=== PATIENT | male | born 1935 | race Caucasian/White ===

== ENCOUNTER 2017-01-20 19:41 | Inpatient (IN) ==
[2017-01-20 21:36] LABS: Basophils % 0.3 %; Eosinophils # 0.2 K/mcL (0.0-0.6); Hematocrit 44.8 % (37.5-50.1); Hemoglobin 14.3 g/dL (12.9-16.9); Immature Granulocytes % 0.7 % (0-4); Lymphocytes # 2.7 K/mcL (0.6-4.6); Lymphocytes % 23.1 %; Mean Corpuscular HGB Conc 31.9 g/dL (31.6-35.5); Mean Corpuscular Hemoglobin 27.4 pg (28.0-33.3); Mean Platelet Volume 9.6 fL (9.4-12.4); Monocytes # 0.7 K/mcL (0.0-1.3); Monocytes % 5.7 %; Neutrophils # 8.1 K/mcL (1.6-8.9); Platelet Count 204 K/mcL (140-400); Red Blood Count 5.21 M/mcL (4.19-5.50); Red Cell Distribution Width 12.5 % (11.5-14.5); Segmented Neutrophils % 68.2 %
[2017-01-20 21:42] LABS: INR 1.1; Prothrombin Time 11.6 Seconds (9.4-12.1)
[2017-01-20 21:44] LABS: Activated Partial Thrombo Time 30.9 Seconds (26.0-36.0)
[2017-01-20 21:50] LABS: BUN/Creatinine Ratio 16 (6-26); Blood Urea Nitrogen 15 mg/dL (8-26); Calcium 9.1 mg/dL (8.6-10.8); Carbon Dioxide 25 mEq/L (19-29); Chloride 102 mEq/L (98-109); Glucose 151 mg/dL (70-99); Osmolality,Calculated 284 (280-300); Potassium 4.5 mEq/L (3.5-4.5); Sodium 135 mEq/L (136-145); eGFR For African Americans > 60 (> 60); eGFR For Non-African Americans > 60 (> 60)
[2017-01-21] MEDS ORDERED: *HR* Enoxaparin 80 MG/0.8 ML SYRINGE SQ STA (00:14)
--- NOTE | 2017-01-21 00:37 | Emergency Department Note ---
Disposition Clinical Impression: Pulmonary embolism Qualifiers: Pulmonary embolism type: other Chronicity: acute Acute cor pulmonale presence: with acute cor pulmonale Qualified Code(s): I26.09 - Other pulmonary embolism with acute cor pulmonale Disposition: Home, Self-Care Condition: Good Referrals: Pao Kwon MD [Primary Care Provider] - Forms: ED Satisfaction Letter General Adult HPI - General Chief complaint: ED Shortness of Breath/Dyspnea Stated complaint: PE in Lungs / per [facility] CT scan Time Seen by Provider: 01/20/17 20:31 Source: patient Limitations: no limitations Nursing Notes Reviewed: Yes Vital Signs Reviewed: Yes - History of Present Illness HPI Narrative: This is a 81-year-old male with a history of bladder cancer presents with concern for pulmonary embolism. He was seen the day at [facility] and had a screening CAT scan which incidentally found pulmonary embolism. He has no dyspnea or chest pain. He was sent here for further evaluation. He denies calf pain, leg tenderness, recent travel. Pain Scale: 0 - Related Data Home Medications Medication Instructions Recorded Confirmed Docusate [Colace] 100 mg PO DAILY PRN 11/15/16 11/15/16 Simvastatin [Zocor] 20 mg PO HS 11/15/16 11/15/16 Previous Rx's Medication Instructions Recorded HYDROcodone/Acet 5/325 mg [[place] 1 tab PO Q4H PRN #15 tab 11/15/16 5-325 mg] Phenazopyridine HCl [Pyridium] 200 mg PO TIDAC PRN #20 tab 11/15/16 Sulfamethoxazole/Trimeth DS 1 each PO BID #6 tablet 11/15/16 [Bactrim DS] Allergies Allergy/AdvReac Type Severity Reaction Status Date / Time No Known Allergies Allergy Verified 11/15/16 13:50 All systems ED: reviewed and negative except as stated. Past Medical History - Past Medical History Medical history: Reports: cancer, hyperlipidemia, other Surgical history: Reports: cataract, vasectomy Psychiatric history: Reports: no psych history - Social History Smoking Status: Never smoker Smokeless Tobacco Status: No Alcohol use: Reports: none Drug use: Reports: none Physical Exam - General Limitations: no limitations General appearance: alert, in no apparent distress - Head Head exam: atraumatic - Eye Eye exam: Present: normal appearance - ENT ENT exam: normal exam - Neck Neck exam: Present: normal inspection - Chest Chest inspection: Present: normal inspection - Respiratory Respiratory exam: Present: normal lung sounds bilaterally - Cardiovascular Cardiovascular exam: Present: regular rate, normal rhythm - Abdominal Exam Abdominal exam: Present: soft, Non-Tender - Extremities Exam Extremities exam: Present: pedal edema - Expanded Lower Extremity Exam Gait: observed and normal - Back Exam Back exam: Present: normal inspection - Neurological Exam Neurological exam: Present: alert, oriented X3, CN II-XII intact - Psychiatric Psychiatric exam: Present: normal affect, normal mood - Skin Skin exam: Present: warm, dry Course Vital Signs Temperature 98.1 F 01/20/17 19:45 Pulse Rate 64 01/20/17 19:45 Respiratory Rate 20 01/20/17 19:45 Blood Pressure 152/86 01/20/17 19:45 O2 Sat by Pulse Oximetry 96 01/20/17 19:45 Temperature 98.1 F 01/20/17 19:45 Pulse Rate 64 01/20/17 19:45 Respiratory Rate 20 01/20/17 19:45 Blood Pressure 152/86 01/20/17 19:45 O2 Sat by Pulse Oximetry 96 01/20/17 19:45 Oxygen Delivery Oxygen Delivery Room Air Medical Decision Making - MDM Narrative Medical decision making narrative: Patient presents with history of recent bladder cancer. Found to have palmar embolism without heart strain. Also has acute DVT of the left lower extremity. EKG shows sinus rhythm with right bundle branch block, left anterior fascicular block. Nonspecific ST segment changes nonspecific abnormal ECG. Patient was on abnormal creatinine, anticoagulation was started with Lovenox. Patient will be admitted to the hospitalist team for evaluation of DVT and pulmonary M was not. - Medical Records Medical records reviewed: Yes I reviewed the patient's medical records. - Lab Data Lab results reviewed: Yes I reviewed the patient's lab results. Result diagrams: 01/20/17 21:26 01/20/17 21:26 Lab Results 01/20/17 01/20/17 01/20/17 Range/Units 21:26 21:26 21:26 WBC 11.8 H (4.3-11.1) K/mcL RBC 5.21 (4.19-5.50) M/mcL Hgb 14.3 (12.9-16.9) g/dL Hct 44.8 (37.5-50.1) % MCV 86.0 (83.0-100.0) fL MCH 27.4 L (28.0-33.3) pg MCHC 31.9 (31.6-35.5) g/dL RDW 12.5 (11.5-14.5) % Plt Count 204 (140-400) K/mcL MPV 9.6 (9.4-12.4) fL Immature Gran % 0.7 (0-4) % Seg Neutrophils % 68.2 % Lymphocytes % 23.1 % Monocytes % 5.7 % Eosinophils % 2.0 % Basophils % 0.3 % Neutrophils # 8.1 (1.6-8.9) K/mcL Lymphocytes # 2.7 (0.6-4.6) K/mcL Monocytes # 0.7 (0.0-1.3) K/mcL Eosinophils # 0.2 (0.0-0.6) K/mcL Basophils # 0.0 (0.0-0.2) K/mcL PT 11.6 (9.4-12.1) Seconds INR 1.1 APTT 30.9 (26.0-36.0) Seconds D-Dimer 5005 H (0-500) ng/mLFEU Sodium 135 L (136-145) mEq/L Potassium 4.5 (3.5-4.5) mEq/L Chloride 102 (98-109) mEq/L Carbon Dioxide 25 (19-29) mEq/L BUN 15 (8-26) mg/dL Creatinine 0.91 (0.72-1.25) mg/dL Est GFR ( Amer) > 60 (> 60) Est GFR (Non-Af Amer) > 60 (> 60) BUN/Creatinine Ratio 16 (6-26) Glucose 151 H (70-99) mg/dL Calculated Osmolality 284 (280-300) Lactic Acid (0.5-2.2) mmol/L Calcium 9.1 (8.6-10.8) mg/dL B-Natriuretic Peptide (0-100) pg/mL 01/20/17 01/20/17 Range/Units 21:26 21:26 WBC (4.3-11.1) K/mcL RBC (4.19-5.50) M/mcL Hgb (12.9-16.9) g/dL Hct (37.5-50.1) % MCV (83.0-100.0) fL MCH (28.0-33.3) pg MCHC (31.6-35.5) g/dL RDW (11.5-14.5) % Plt Count (140-400) K/mcL MPV (9.4-12.4) fL Immature Gran % (0-4) % Seg Neutrophils % % Lymphocytes % % Monocytes % % Eosinophils % % Basophils % % Neutrophils # (1.6-8.9) K/mcL Lymphocytes # (0.6-4.6) K/mcL Monocytes # (0.0-1.3) K/mcL Eosinophils # (0.0-0.6) K/mcL Basophils # (0.0-0.2) K/mcL PT (9.4-12.1) Seconds INR APTT (26.0-36.0) Seconds D-Dimer (0-500) ng/mLFEU Sodium (136-145) mEq/L Potassium (3.5-4.5) mEq/L Chloride (98-109) mEq/L Carbon Dioxide (19-29) mEq/L BUN (8-26) mg/dL Creatinine (0.72-1.25) mg/dL Est GFR ( Amer) (> 60) Est GFR (Non-Af Amer) (> 60) BUN/Creatinine Ratio (6-26) Glucose (70-99) mg/dL Calculated Osmolality (280-300) Lactic Acid 1.1 (0.5-2.2) mmol/L Calcium (8.6-10.8) mg/dL B-Natriuretic Peptide 85 (0-100) pg/mL - Radiology Data Radiology results reviewed: Yes I reviewed the patient's radiology results.
[2017-01-21] MEDS ORDERED: Naloxone 0.4 MG/ML INJ IVP PRN (00:40)
[2017-01-21] MEDS ORDERED: Ondansetron 4 MG/2 ML VIAL IVP PRN (00:40)
[2017-01-21] MEDS ORDERED: Acetaminophen 325 MG TABLET PO PRN (00:40)
--- NOTE | 2017-01-21 00:54 | Internal Med History&Physical ---
Date of Encounter: 01/21/17 Time of Encounter: 00:30 Assessment and Plan (1) Pulmonary embolism Current visit: Yes Status: Acute Acute Right side PE with Left lower leg DVT - asymptomatic - likely caused due to cancer Lovenox 1mg/kg SC BID, Coumadin 5mg (patient wants to be on Coumadin) Cardiac telemonitor, pulse ox monitor PT/INR Qualifiers: Pulmonary embolism type: other Chronicity: acute Acute cor pulmonale presence: without acute cor pulmonale Qualified Code(s): I26.99 - Other pulmonary embolism without acute cor pulmonale (2) DVT, lower extremity, distal, acute Current visit: Yes Status: Acute acute left lower leg DVT continue Lovenox SC (3) Bladder tumor Current visit: No Status: Chronic s/p tumor resection Follows up at [facility] Scheduled for chemotherapy soon (4) Hyperlipidemia Current visit: Yes Status: Chronic Continue Statin Qualifiers: Hyperlipidemia type: unspecified Qualified Code(s): E78.5 - Hyperlipidemia , unspecified Internal Medicine - H&P: HPI Chief complaint: Pulmonary embolus Admitted From: Emergency Dept History of present illness: Mr. Huerta is a 81 year old male with past medical history of bladder cancer status post tumor resection and soon to undergo chemotherapy. He presents to the ED after being diagnosed with a pulmonary embolus, which was found incidentally on a CT scan of chest at [facility]. Patient underwent CT scan of the abdomen and chest to look for metastasis. Patient was advised to to the ED in view of PE. On examination patient is awake and alert. Not in any distress. Patient denies chest pain, denies shortness of breath denies palpitations denies dizziness or lightheadedness. Denies abdominal pain or nausea or vomiting. He has no acute complaints at present. Patient's son is at bedside and he also states patient has not complained of anything and that they were surprised when they were told to go to the ED. Patient denies calf pain or tenderness. Patient states he is very active and does not have any other significant medical problems. CT angiogram of the chest done here revealed acute pulmonary emboli of the right lower lobe and also middle lobe with overall mild clot burden. Patient was also found to have left lower leg DVT. He has been given Lovenox 1 mg/kg subcutaneous in the ED. Patient states he wants to be on warfarin for long-term anticoagulation, because his is on it as well. He does not want to be on any of the newer anticoagulant medications. Patient is being admitted for acute DVT and acute PE. Patient and his son have been explained about his condition and plan of care in detail. They understood and agreed. No unanswered questions. CODE STATUS full code. Past Med Surg Social Fam HX - Past Medical History Medical history: cancer, hyperlipidemia, other Psychiatric history: no psych history - Past Surgical History Surgical History: cataract, vasectomy, other (bladder tumor resection) - Social History Smoking Status: Never smoker Smokeless Tobacco Status: No Alcohol use: none Drug use: none Internal Medicine - H&P: Meds Docusate [Colace] 100 mg PO DAILY PRN 11/15/16 [History] HYDROcodone/Acet 5/325 mg [[place] 5-325 mg] 1 tab PO Q4H PRN #15 tab 11/15/16 [Rx ] Phenazopyridine HCl [Pyridium] 200 mg PO TIDAC PRN #20 tab 11/15/16 [Rx] Simvastatin [Zocor] 20 mg PO HS 11/15/16 [History] Sulfamethoxazole/Trimeth DS [Bactrim DS] 1 each PO BID #6 tablet 11/15/16 [Rx] Allergies No Known Allergies Allergy (Verified 11/15/16 13:50) All Systems PM: A 10-system review of systems was performed and is negative for pertinent findings except as documented above in the HPI. - Constitutional Constitutional: as per HPI, no fatigue, no weakness - EENT Eyes: no blurry vision, no loss of vision - Cardiovascular Cardiovascular ROS IM: no chest pain, no diaphoresis, no dyspnea, no dyspnea on exertion, no lightheadedness, no orthopnea - Respiratory Respiratory: no cough, no dyspnea, no hemoptysis, no dyspnea on exertion, no wheezing, no chest congestion - Gastrointestinal Gastrointestinal: no abdominal pain, no cramping, no diarrhea, no nausea, no vomiting - Genitourinary Genitourinary ROS male: urinary frequency - Musculoskeletal Musculoskeletal ROS IM: no arthralgias - Neurological Neurological ROS: no abnormal gait, no abnormal speech, no dizziness, no focal weakness, no loss of vision - Constitutional Vitals: Temp Pulse Resp BP Pulse Ox 98.1 F 66 14 162/95 97 01/20/17 19:45 01/20/17 23:49 01/20/17 23:49 01/20/17 23:49 01/20/17 23:49 General appearance: Present: A&O X 3, pleasant, no acute distress, answers questions appropriately - Head Head exam: Present: atraumatic - Eye Eye exam: Present: EOMI - Neck Neck exam general surgery: Present: supple - Respiratory Respiratory exam: Present: CTAB. Absent: rales, rhonchi, wheezes - Cardiovascular Cardiovascular exam: Present: RRR, +S1, +S2 - GI/Abdominal GI/Abdominal exam: Present: soft. Absent: distended, firm, guarding, tenderness - Extremities Exam Extremities exam: Present: warm, radial pulses palpable and symetrical. Absent : calf tenderness, cyanotic, pedal edema, tenderness - Neurological Exam Neurological exam: Present: alert, oriented X3, no focal deficits Internal Med - H&P Results - Labs CBC & Chem 7: 01/20/17 21:26 01/20/17 21:26
[2017-01-21 03:58] LABS: Hematocrit 41.6 % (37.5-50.1); Hemoglobin 13.4 g/dL (12.9-16.9); Mean Corpuscular HGB Conc 32.2 g/dL (31.6-35.5); Mean Corpuscular Hemoglobin 27.7 pg (28.0-33.3); Mean Platelet Volume 9.7 fL (9.4-12.4); Platelet Count 184 K/mcL (140-400); Red Blood Count 4.84 M/mcL (4.19-5.50); Red Cell Distribution Width 12.5 % (11.5-14.5)
[2017-01-21 04:07] LABS: INR 1.2; Prothrombin Time 12.5 Seconds (9.4-12.1)
[2017-01-21 04:12] LABS: BUN/Creatinine Ratio 15 (6-26); Blood Urea Nitrogen 13 mg/dL (8-26); Calcium 8.5 mg/dL (8.6-10.8); Carbon Dioxide 26 mEq/L (19-29); Chloride 103 mEq/L (98-109); Glucose 158 mg/dL (70-99); Osmolality,Calculated 287 (280-300); Potassium 3.6 mEq/L (3.5-4.5); Sodium 137 mEq/L (136-145); eGFR For African Americans > 60 (> 60); eGFR For Non-African Americans > 60 (> 60)
[2017-01-21] MEDS ORDERED: Famotidine 20 MG/2 ML VIAL IVP SCH (06:00)
[2017-01-21] MEDS: *HR* Enoxaparin 100 MG/ML SYRINGE SQ SCH ×2 (11:49→18:07)
[2017-01-21 16:48] VITALS: BP 112/69
--- NOTE | 2017-01-21 17:55 | Discharge Summary ---
Date of Encounter: 01/21/17 Time of Encounter: 17:50 - Discharge Diagnosis (1) Pulmonary embolism Priority: Primary Status: Acute Comments: Acute Right side PE with Left lower leg DVT - asymptomatic - likely caused due to cancer Lovenox 1mg/kg SC BID Qualifiers: Pulmonary embolism type: other Chronicity: acute Acute cor pulmonale presence: without acute cor pulmonale Qualified Code(s): I26.99 - Other pulmonary embolism without acute cor pulmonale (2) Bladder tumor Priority: Secondary Status: Chronic (3) Hyperlipidemia Priority: Secondary Status: Chronic Qualifiers: Hyperlipidemia type: unspecified Qualified Code(s): E78.5 - Hyperlipidemia , unspecified (4) DVT, lower extremity, distal, acute Priority: Secondary Status: Acute - Discharge Medications Prescriptions: Enoxaparin [Lovenox] 90 mg SQ Q12HR #60 syringe Home Medications: Docusate [Colace] 100 mg PO DAILY PRN 11/15/16 [History] Simvastatin [Zocor] 20 mg PO HS 11/15/16 [History] Enoxaparin [Lovenox] 90 mg SQ Q12HR #60 syringe 01/21/17 [Rx] Allergies/Adverse Reactions: Allergies No Known Allergies Allergy (Verified 11/15/16 13:50) Date of admission: 01/21/17 00:40 Primary care physician: Pao Kwon MD - Patient Status Disposition: Home, Self-Care Condition: Good Overall status at discharge: patient is back to baseline - Discharge Instructions Follow Up With: Pao Kwon MD [Primary Care Provider] - Additional Instructions: Follow-up with primary care physician within the next 7 days. Continue Lovenox 90 mg subcutaneous twice a day for now until following up with [facility] urology and primary care physician. - Diet and Activity Activity: increase activity as tolerated Diet: low fat, low cholesterol Hospital course: Mr. Huerta is a 81 year old male with past medical history of bladder cancer status post tumor resection and soon to undergo chemotherapy. He presented to the ED after being diagnosed with a pulmonary embolus, which was found incidentally on a CT scan of chest at [facility]. Patient underwent CT scan of the abdomen and chest to look for metastasis. Patient was advised to go the ED in view of PE. On examination patient is awake and alert. Not in any distress. Patient denied chest pain, denies shortness of breath denies palpitations denies dizziness or lightheadedness. Denied abdominal pain , nausea or vomiting. He had no acute complaints . Patient denies calf pain or tenderness. Patient states he is very active and does not have any other significant medical problems. CT angiogram of the chest done here revealed acute pulmonary emboli of the right lower lobe and also middle lobe with overall mild clot burden. Patient was also found to have left lower leg DVT. He was given Lovenox 1 mg/kg subcutaneous in the ED. Patient stated he wanted to be on warfarin for long-term anticoagulation, because his is on it as well. He does not want to be on any of the newer anticoagulant medications. Options were discussed including using Lovenox alone, the patient referred initially to do Lovenox and Coumadin. After talking to his urologist at [facility] he decided to continue Lovenox alone as he going to start chemotherapy for 3 months and then have bladder surgery. Risks were explained. The patient was explained that he would require at least 6 months of anticoagulation unless other reasons to continue it permanently. He mentioned he would discuss options with his primary care physician who will refill his prescription and possibly start Coumadin at a later time - Time Spent with Patient Total time spent providing and/or coordinating discharge services: Greater than 30 minutes (40 min) - Constitutional Vitals: Temp Pulse Resp BP Pulse Ox 98.4 F 65 16 112/69 96 01/21/17 16:45 01/21/17 16:45 01/21/17 16:45 01/21/17 16:45 01/21/17 16:45 General appearance: Present: A&O X 3, pleasant, no acute distress, answers questions appropriately - Head Head exam: Present: atraumatic, normocephalic - Eye Eye exam: Present: PERRL, conjuntiva pink, sclera anicteric Pupils: Present: PERRL - Neck Neck exam general surgery: Present: supple, trachea midline. Absent: lymphadenopathy - Respiratory Respiratory exam: Present: CTAB. Absent: accessory muscle use, rales, rhonchi, wheezes - Cardiovascular Cardiovascular exam: Present: RRR, +S1, +S2. Absent: diastolic murmur, gallop, rubs, systolic murmur - GI/Abdominal GI/Abdominal exam: Present: normal bowel sounds, soft, no peritoneal signs. Absent: distended, tenderness - Extremities Exam Extremities exam: Present: warm, radial pulses palpable and symetrical. Absent : calf tenderness, cyanotic, pedal edema - Neurological Exam Neurological exam: Present: CN II-XII intact, oriented X3, no focal deficits. Absent: pronater drift, facial droop, speech deficit - Skin Skin exam: Present: dry, intact
[2017-01-21] MEDS ORDERED: *HR* Warfarin 5 MG TABLET PO SCH (18:00)
--- NOTE | 2017-01-23 13:44 | Electrocardiograph Report ---
[place] Test Date: 2017-01-20 Pat Name: Jose A Huerta Department: 104 Room: 2A45 Gender: M Dial Polisher: : 1935 Requested By: Hang Cheek Order Number: [id number] Reading MD: Neo Wilcox MD Measurements Intervals [place] Rate: 69 P: 49 WI: 179 QRS: -61 QRSD: 139 T: 61 QT: 418 QTc: 437 Interpretive Statements SINUS RHYTHM RIGHT BUNDLE BRANCH BLOCK LEFT ANTERIOR FASCICULAR BLOCK POSSIBLE LEFT VENTRICULAR HYPERTROPHY POSSIBLE SEPTAL MYOCARDIAL INFARCTION, PROBABLY OLD Electronically Signed On 01-23-2017 13:43:01 EDT by Neo Wilcox MD
--- NOTE | 2017-01-23 15:39 | Venous Imaging Report ---
LE Venous Duplex Patient Name:Jose A Huerta Order Number:[id number] Procedure Date:01/20/2017 Date:1935ge:81 yrs Gender:Male Location:[facility] ED Room #: ER26 [place] Operator:Digna Cox RDCS Referring MD:DO Lyubov Rosales MD:Moses Diaz MD Primary Indications:PE Secondary Indications: Impressions: Normal right lower extremity deep and superficial venous exam. Acute deep venous thrombosis is present in the left posterior tibial and peroneal veins. Normal left lower extremity superficial venous exam. Recommendations: Test completed on 01/20/2017 at 10:21:00 pm. Critical findings reported to Dr Banuelos in person at 10:25:00 pm on 01/20/2017 by Digna Cox RDCS. Findings Venous Duplex Results: Right: Venous imaging of the lower extremity reveals full patency and normal vessel compressibility of the right distal iliac, right common femoral, right superficial femoral, right popliteal, right posterior tibial, right peroneal, right great saphenous and right lesser saphenous. Doppler signals in the evaluated veins were normal. Left: Venous imaging of the lower extremity reveals full patency and normal vessel compressibility of the left distal iliac, left common femoral, left superficial femoral, left popliteal, left great saphenous and left lesser saphenous. Doppler signals in the evaluated veins were normal. There is an occlusive thrombus seen in the left posterior tibial. It demonstrates an incompressible vein. Flow was continuous and it did not augment. There is an occlusive thrombus seen in the left peroneal. It demonstrates an incompressible vein. Flow was absent and it did not augment. Prior Study: No prior study available for comparison. Lower Extremity Venous Duplex Side Vein Compress Spontaneous Flow Augment Diameter (cm) Depth (cm) Right Distal Iliac Normal Yes Phasic Yes Right Common Femoral Normal Yes Phasic Yes Right Superficial Femoral Normal Yes Phasic Yes Right Popliteal Normal Yes Phasic Yes Right Posterior Tibial Normal Yes Phasic Yes Right Peroneal Normal Yes Phasic Yes Right Great Saphenous Normal Yes Phasic Yes Right Lesser Saphenous Normal Yes Phasic Yes Left Distal Iliac Normal Yes Phasic Yes Left Common Femoral Normal Yes Phasic Yes Left Superficial Femoral Normal Yes Phasic Yes Left Popliteal Normal Yes Phasic Yes Left Posterior Tibial None no Continuous no Left Peroneal None no Absent no Left Great Saphenous Normal Yes Phasic Yes Left Lesser Saphenous Normal Yes Phasic Yes Updated by Moses Diaz MD on 01/23/2017 3:32:03 PM electronically signed on 01/23/2017 3:32:27 PM with status of Final
== END 2017-01-21 18:30 | disposition home or self-care (01) | DRG 176 ==
LOC: 2ANU 19:41 → EMEROO 19:41 → 2ANU 01-21 01:04
PROVIDERS: ADMIT Internal Medicine Sleep Medicine; ATTEND Internal Medicine